=== PATIENT | female | born 1965 | race Caucasian/White ===

== ENCOUNTER 2016-12-08 08:38 | Emergency (ER) | payer OTHER ==
[~2016-12-08 08:38] MED LIST: ACETAMINOPHEN325 MG PO; ARMOUR THYROID30 MG PO; CIPRO500 MG PO; ESTRADIOL TRAN1 EAC1 TOP; FLAGYL500 MG PO; PERCOCET 5-3251 EACH PO; PROTONIX40 MG PO; ULTRAM50 MG PO
== END 2016-12-08 14:15 | disposition short-term general hospital (02) ==
LOC: ER 08:38
DX: R11.2 Nausea with vomiting, unspecified (principal); R10.9 Unspecified abdominal pain; R19.7 Diarrhea, unspecified; I10 Essential (primary) hypertension; Z90.49 Acquired absence of other specified parts of digestive tract; Z79.899 Other long term (current) drug therapy
CPT/HCPCS: 36415; 96361; 96374; 96375; J2550